=== PATIENT | female | born 1970 | race Caucasian/White ===

== ENCOUNTER 2018-05-27 13:41 | Emergency (ER) | payer OTHER ==
[~2018-05-27] VITALS: Ht 157.5 cm; Wt 61.2 kg
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
[2018-05-27 13:45] VITALS: BP_SYST 137
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
--- NOTE | 2018-05-27 14:00 | NUR ---
ER at bedside examining patient.
[2018-05-27] MEDS: MORPHINE 2 MG/ML INJ. SYRINGE IVP ONE (14:41)
[2018-05-27] MEDS: ONDANSETRON HCL 4 MG/2 ML VIAL IVP ONE (14:42)
[2018-05-27] MEDS ORDERED: MORPHINE 4 MG/ML INJ. SYRINGE ONE (14:46)
--- NOTE | 2018-05-27 15:00 | NUR ---
Pt medicated tolerated well.
[2018-05-27] MEDS: MORPHINE 4 MG/ML INJ. SYRINGE IVP ONE ×2 (15:15→19:41)
--- NOTE | 2018-05-27 16:00 | NUR ---
Pt reports pain resolving
[2018-05-27] MEDS: KETOROLAC TROMETHAMINE 30 MG VIAL IVP ONE (17:16)
--- NOTE | 2018-05-27 17:30 | NUR ---
Pt ambulated to restroom w/o assist.
--- NOTE | 2018-05-27 19:23 | NUR ---
Per Dr. Middleton pt refused further medication. Pt to be discharged.
[2018-05-27 20:05] VITALS: BP_SYST 131
--- NOTE | 2018-05-27 20:05 | NUR ---
Patient given written and verbal discharge instructions and verbalizes understanding. ER MD discussed with patient the results and treatment provided. Patient in stable condition. ID arm band removed. IV catheter removed intact and dressing applied, no active bleeding. Rx of Robaxin, Motrin and [place] given. Patient educated on pain management and to follow up with PMD. Pain Scale 0. Opportunity for questions provided and answered. Medication side effect fact sheet provided.
== END 2018-05-27 19:23 | disposition home or self-care (01) ==
LOC: SED 13:41
DX: S16.1XXA Strain of muscle, fascia and tendon at neck level, initial encounter (principal); S39.012A Strain of muscle, fascia and tendon of lower back, initial encounter; S09.90XA Unspecified injury of head, initial encounter; S89.91XA Unspecified injury of right lower leg, initial encounter; S89.92XA Unspecified injury of left lower leg, initial encounter; F17.200 Nicotine dependence, unspecified, uncomplicated; Z71.6 Tobacco abuse counseling; Z90.710 Acquired absence of both cervix and uterus; V43.52XA Car driver injured in collision with other type car in traffic accident, initial encounter; Y93.89 Activity, other specified; Y92.411 Interstate highway as the place of occurrence of the external cause; Y99.8 Other external cause status
CPT/HCPCS: 70450; 72125; 72131; 72170; 73560; 96374; 96375; 96376; 99284; J1885; J2270; J2405